=== PATIENT | female | born 1965 | race Hispanic/Latino ===

== ENCOUNTER 2020-08-23 09:14 | Outpatient (CLI) | payer BC | END 2020-08-23 09:15 | disposition home or self-care (01) | LOC: CSHMAMMO 09:14 | PROVIDERS: ATTEND Student in an Organized Health Care Education/Training Program | DX: Z12.31 Encounter for screening mammogram for malignant neoplasm of breast (principal); R92.8 Other abnormal and inconclusive findings on diagnostic imaging of breast | CPT/HCPCS: 77063; 77067 ==

== ENCOUNTER 2020-08-27 09:14 | Outpatient (CLI) | payer BC | END 2020-08-27 09:15 | disposition home or self-care (01) | LOC: CSHMAMMO 09:14 | PROVIDERS: ATTEND Student in an Organized Health Care Education/Training Program | DX: R92.2 Inconclusive mammogram (principal); N64.89 Other specified disorders of breast | CPT/HCPCS: G0279 ==

== ENCOUNTER 2021-11-19 09:47 | Outpatient (CLI) | payer BC | END 2021-11-19 09:48 | disposition home or self-care (01) | LOC: CSHMAMMO 09:47 | PROVIDERS: ATTEND Student in an Organized Health Care Education/Training Program | DX: Z12.31 Encounter for screening mammogram for malignant neoplasm of breast (principal) | CPT/HCPCS: 77063; 77067 ==

== ENCOUNTER 2025-01-17 22:36 | Emergency (ER) | payer BC, OTHER ==
[~2025-01-17 22:36] MED LIST: Iopamidol 370 76% 100 ML VIAL ONE
[2025-01-17 23:00] LABS: Pregnancy Test - Urine (BHCG) Negative (Negative); Pregu Control Background? CLEAR/WHITE (CLR/WHITE); Pregu Control Bar Appear? YES (CONTROL BAR)
[2025-01-17 23:01] LABS: Glucose, Urine (Dipstick) Normal (Negative); Leukocyte 500 (Negative); Protein, Urine (Dipstick) 30 mg/dl (Neg-Trace); Specific Gravity, Urine 1.010 (1.005-1.030)
[2025-01-17 23:04] LABS: Bacteria/HPF None Seen HPF (None Seen); CAUTI Indications for Culture Dysuria,urgency,freq
[2025-01-17 23:05] LABS: Urine Culture Reflex Yes Yes
[2025-01-17 23:16] LABS: #Basophils 0.07 10x3/uL (0.0-0.2); #Eosinophils 0.85 10x3/uL (0.0-0.5); #Monocytes 0.79 10x3/uL (0.0-1.1); #Neutrophils 12.75 10x3/uL (1.5-8.4); %Basophils 0.4 % (0.0-2.0); %Eosinophils 4.9 % (0.0-6.0); %Lymphocytes 15.7 % (18.0-47.0); %Monocytes 4.6 % (0.0-10.0); %Neutrophils 74.1 % (40.0-75.0); Hematocrit 43.3 % (34.9-44.5); Hemoglobin 14.6 g/dL (12.0-15.5); Mean Corpuscular Hemoglobin 29.0 pg (27.0-33.0); Mean Corpuscular Volume 85.9 fL (81.6-98.3); Platelet Count 356 10x3/uL (150-450); Red Blood Cell (RBC) Count 5.04 10x6/uL (3.90-5.03); White Blood Cell (WBC) Count 17.23 10x3/uL (3.5-10.5)
[2025-01-17 23:36] LABS: ALT (SGPT) 13 U/L (Less than 34); AST (SGOT) 21 U/L (11-34); Albumin 4.1 g/dL (3.1-4.5); Alkaline Phosphatase 73 U/L (40-110); Anion Gap 15 mmol/L (10-20); BUN (Urea Nitrogen) 23 mg/dL (9.8-20.1); Bilirubin, Total 0.4 mg/dL (0.3-1.2); Calc. Creatinine Clearance 0 mL/min (70-130); Calcium 9.2 mg/dL (7.8-10.44); Carbon Dioxide 25 mmol/L (22-29); Chloride 104 mmol/L (98-107); Globulin 3.3 g/dL (2.4-3.5); Glucose 185 mg/dL (70-105); Lipase 8 U/L (8-78); Potassium 3.8 mmol/L (3.5-5.1); Sodium 140 mmol/L (136-145)
[2025-01-18] MEDS ORDERED: Ketorolac Tromethamine 30 MG (1 mL) VIAL ONE (00:09)
[2025-01-18] MEDS ORDERED: Ondansetron PF 4 MG/2 ML Vial ONE (00:09)
== END 2025-01-18 01:38 | disposition home or self-care (01) ==
LOC: CSHERS 22:36
DX: N13.2 Hydronephrosis with renal and ureteral calculous obstruction (principal); R31.29 Other microscopic hematuria
CPT/HCPCS: 74177; 80053; 81001; 81025; 83690; 85025; 87086; 96374; 96375; J1885; J2270; Q9967